=== PATIENT | female | born 1975 | race African-American/Black ===

== ENCOUNTER → 2016-07-27 | Outpatient (CLI) | payer OTHER ==
[~2016-07-27] MED LIST: FERROUS SU325 MG/TAB PO; PRENATAL VITAMI1 TA5 PO
== END ==
LOC: BHSO 09:00
DX: F33.41 Major depressive disorder, recurrent, in partial remission (principal)

== ENCOUNTER → 2016-09-29 | Outpatient (CLI) | payer OTHER | LOC: BHSO 15:25 | DX: F31.81 Bipolar II disorder (principal) ==

== ENCOUNTER → 2017-01-20 | Outpatient (CLI) | payer OTHER | LOC: BHSO 09:20 | DX: F33.2 Major depressive disorder, recurrent severe without psychotic features (principal) ==

== ENCOUNTER → 2018-01-13 | Outpatient (CLI) | payer OTHER | LOC: BHSO 15:55 | DX: F41.1 Generalized anxiety disorder (principal) | CPT/HCPCS: G0463 ==

== ENCOUNTER → 2018-08-10 | Outpatient (CLI) | payer OTHER | LOC: BHSO 14:34 | DX: F41.1 Generalized anxiety disorder (principal) | CPT/HCPCS: G0463 ==

== ENCOUNTER → 2018-12-13 | Outpatient (CLI) | payer OTHER | LOC: BHSO 09:04 | DX: F41.1 Generalized anxiety disorder (principal) | CPT/HCPCS: G0463 ==

== ENCOUNTER → 2019-05-19 | Outpatient (CLI) | payer OTHER | LOC: BHSO 09:36 | DX: F41.1 Generalized anxiety disorder (principal) | CPT/HCPCS: G0463 ==

== ENCOUNTER → 2019-08-23 | Outpatient (CLI) | payer OTHER | LOC: BHSO 09:58 | DX: F41.1 Generalized anxiety disorder (principal) | CPT/HCPCS: G0463 ==

== ENCOUNTER 2019-11-13 07:35 | Day surgery (SDC) | payer OTHER ==
[~2019-11-13] VITALS: Ht 154.9 cm; Wt 55.1 kg
[2019-11-13] VITALS (8 sets, daily range): BP systolic 92–111; BP diastolic 59–80; PULSE 50–74; TEMP 97.5–98.3
[2019-11-13] MEDS ORDERED: PRILOSEC 20MG20 MG PO (09:44)
== END 2019-11-13 11:35 | disposition home or self-care (01) ==
LOC: SDCO 07:35
DX: K29.80 Duodenitis without bleeding (principal); K62.5 Hemorrhage of anus and rectum; K59.00 Constipation, unspecified
CPT/HCPCS: J2250; J2405; J2765; J3010; J7030

== ENCOUNTER → 2020-01-23 | Outpatient (CLI) | payer OTHER ==
[~2020-01-23] MED LIST changes: +PRILOSEC 20MG20 MG PO
== END ==
LOC: BHSO 09:32
DX: F41.1 Generalized anxiety disorder (principal)
CPT/HCPCS: G0463

== ENCOUNTER → 2022-03-16 | Outpatient (CLI) | payer OTHER | LOC: MC.RAD 08:53 | DX: N63.21 Unspecified lump in the left breast, upper outer quadrant (principal) ==